=== PATIENT | male | born 2000 | race African-American/Black ===

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

== ENCOUNTER 2018-01-11 10:39 | Emergency (ER) | payer MEDICAID, OTHER ==
[2018-01-11 10:45] VITALS: BP 120/64
[2018-01-11] MEDS ORDERED: DIPHENHYDRAMINE HCL 50 MG/ML VIAL IV ONE (11:09)
[2018-01-11] MEDS ORDERED: METOCLOPRAMIDE HCL INJ/PF 10 MG/2 ML SDV IV ONE (11:09)
[2018-01-11] MEDS ORDERED: KETOROLAC TROMETHAMINE INJ/PF 30 MG/1 ML SDV IV ONE (11:09)
[2018-01-11] MEDS ORDERED: NORMAL SALINE 1000 ML 1,000 ML IV ONE (11:09)
--- NOTE | 2018-01-11 11:11 | ER Document Report ---
ED Medical Screen (RME) - General Chief Complaint: Headache Stated Complaint: HEADACHE Time Seen by Provider: 01/11/18 11:06 Notes: Patient is a 17-year-old male, no past medical history, presents with 5 days of a waxing and waning frontal headache. Tried Advil and Tylenol without much relief of his symptoms. Headache started gradually 5 days ago improve by the end of the day. PE: NAD. 5/5 strength, Normal gait. I have greeted and performed a rapid initial assessment of this patient. A comprehensive ED assessment and evaluation of the patient, analysis of test results and completion of the medical decision making process will be conducted by additional ED providers. TRAVEL OUTSIDE OF THE [place] IN LAST 30 DAYS: No - Related Data Allergies/Adverse Reactions: No Known Allergies Allergy (Verified 07/23/17 14:42) Past Medical History - Social History Chew tobacco use (# tins/day): No Frequency of alcohol use: None Drug Abuse: None Renal/ Medical History: Denies: Hx Peritoneal Dialysis - Immunizations Immunizations up to date: Yes Hx Diphtheria, Pertussis, Tetanus Vaccination: Yes Physical Exam - Vital signs Vitals: Temp Pulse Resp BP Pulse Ox 99.2 F 74 16 120/64 98 01/11/18 10:43 01/11/18 10:43 01/11/18 10:43 01/11/18 10:43 01/11/18 10:43 Course - Vital Signs Vital signs: Temp Pulse Resp BP Pulse Ox 99.2 F 74 16 120/64 98 01/11/18 10:43 01/11/18 10:43 01/11/18 10:43 01/11/18 10:43 01/11/18 10:43
--- NOTE | 2018-01-11 11:32 | ER Document Report ---
HPI - HPI Pain Level: 2 - DERM Skin Color: Normal Past Medical History - Social History Smoking Status: Current Some Day Smoker Chew tobacco use (# tins/day): No Frequency of alcohol use: None Drug Abuse: None Family History: Reviewed & Not Pertinent Patient has suicidal ideation: No Patient has homicidal ideation: No Renal/ Medical History: Denies: Hx Peritoneal Dialysis - Immunizations Immunizations up to date: Yes Hx Diphtheria, Pertussis, Tetanus Vaccination: Yes Vertical Provider Document - INFECTION CONTROL TRAVEL OUTSIDE OF THE [place] IN LAST 30 DAYS: No Course - Vital Signs Vital signs: Temp Pulse Resp BP Pulse Ox 99.2 F 74 16 120/64 98 01/11/18 10:43 01/11/18 10:43 01/11/18 10:43 01/11/18 10:43 01/11/18 10:43
--- NOTE | 2018-01-11 11:33 | ER Document Report ---
ED Headache - General Chief Complaint: Headache Stated Complaint: HEADACHE Time Seen by Provider: 01/11/18 11:06 Mode of Arrival: Ambulatory Information source: Patient Notes: 17-year-old male with gradual onset of a headache since Monday. It started at 7 PM and slowly got worse to where he could not sleep that night. Since then he has a daily headache that worsens through the day until about 4 PM and hurts less in the evening. The headache location is bilateral temporal throbbing headache. He had bad headaches as a child but never saw a neurologist. 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 No recent illness. No sore throat runny nose or cough. No sinus pain. No nausea or vomiting. No fever or chills. No neck pain. TRAVEL OUTSIDE OF THE [place] 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 Lives with: Family Family History: Reviewed & Not Pertinent Patient has suicidal ideation: No Patient has homicidal ideation: No - Medical History Medical History: Negative Renal/ Medical History: Denies: Hx Peritoneal Dialysis Surgical Hx: Negative - Immunizations Immunizations up to date: Yes Hx Diphtheria, Pertussis, Tetanus Vaccination: Yes Review of Systems - Review of Systems Constitutional: No symptoms reported EENT: No symptoms reported Cardiovascular: No symptoms reported Respiratory: No symptoms reported Gastrointestinal: No symptoms reported Genitourinary: No symptoms reported Male Genitourinary: No symptoms reported Musculoskeletal: No symptoms reported Skin: No symptoms reported Hematologic/Lymphatic: No symptoms reported Neurological/Psychological: See HPI Physical Exam - Vital signs Vitals: Temp Pulse Resp BP Pulse Ox 99.2 F 74 16 120/64 98 01/11/18 10:43 01/11/18 10:43 01/11/18 10:43 01/11/18 10:43 01/11/18 10:43 Interpretation: Normal - General General appearance: Appears well, Alert - HEENT Head: Normocephalic, Atraumatic Eyes: Normal Pupils: PERRL Neck: Supple. No: Lymphadenopathy, Thyromegally - Respiratory Respiratory status: No respiratory distress Chest status: Nontender Breath sounds: Normal Chest palpation: Normal - Cardiovascular Rhythm: Regular Heart sounds: Normal auscultation Murmur: No - Abdominal Inspection: Normal Distension: No distension Bowel sounds: Normal Tenderness: Nontender Organomegaly: No organomegaly - Back Back: Normal, Nontender - Extremities General upper extremity: Normal inspection, Nontender, Normal color, Normal ROM , Normal temperature General lower extremity: Normal inspection, Nontender, Normal color, Normal ROM , Normal temperature, Normal weight bearing. No: Cyn's sign - Neurological Neuro grossly intact: Yes Cognition: Normal Orientation: AAOx4 Lucian Coma Scale Eye Opening: Spontaneous Lucian Coma Scale Verbal: Oriented Lucian Coma Scale Motor: Obeys Commands [place] Coma Scale Total: 15 Speech: Normal Motor strength normal: LUE, RUE, LLE, RLE Sensory: Normal - Psychological Associated symptoms: Normal affect, Normal mood - Skin Skin Temperature: Warm Skin Moisture: Dry Skin Color: Normal Course - Re-evaluation Re-evalutation: 01/11/18 12:07 Headache is now 0.5/5. I will give him a prescription for 800 mg Motrin and he can take Tylenol as well. I will refer him to a neurologist and have him return to the emergency room if symptoms worsen. - Vital Signs Vital signs: Temp Pulse Resp BP Pulse Ox 99.2 F 74 16 120/64 98 01/11/18 10:43 01/11/18 10:43 01/11/18 10:43 01/11/18 10:43 01/11/18 10:43 Discharge - Discharge Clinical Impression: Bilateral throbbing temporal headache Condition: Good Disposition: HOME, SELF-CARE Instructions: Use of Diphenhydramine, Headache ([facility]), Reglan ([facility]), Toradol Injection ([facility]) Additional Instructions: Motrin 800 mg 3 times a day as needed for headache Tylenol up to 4000 mg per day for pain Call and schedule appointment with neurologist Return to the emergency room any worsening symptoms Prescriptions: Ibuprofen [Motrin 800 mg Tablet] 800 mg PO Q8HP PRN #30 tablet PRN Reason: Forms: Return to Work Referrals: ALBERT LARES MD [NO LOCAL MD] - Follow up as needed
== END 2018-01-11 12:21 | disposition home or self-care (01) ==
LOC: ER 10:39
DX: R51 Headache (principal); F17.200 Nicotine dependence, unspecified, uncomplicated
CPT/HCPCS: 99284; 96361; 96374; 96375; J1200; J1885; J2765; J7030

== ENCOUNTER 2018-06-08 20:11 | Emergency (ER) | payer SELFPAY ==
--- NOTE | 2018-06-08 22:21 | ER Document Report ---
ED Respiratory Problem - General Chief Complaint: Cold Symptoms Stated Complaint: COLD SYMPTOMS Time Seen by Provider: 06/08/18 22:04 Mode of Arrival: Ambulatory Information source: Patient Notes: Patient is a 18-year-old male comes emergency room with a 3-day onset of cough congestion sneezing and shortness of breath with a slight fever. Patient states he thinks he probably got it from his mother who was diagnosed with it about a week before. He states he took an antibiotic and steroids to get her cleared up. 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 He also is in [employer] and he is due for his yearly PT evaluation. He has been having Hacche cough productive yellowish-green. With the runny nose and is difficult for him to breathe. He is tried Mucinex [id number] as well as ibuprofen and Tylenol for the fever. He is recently taken something for ibuprofen for the fever. He also states he has a severe sore throat as well. TRAVEL OUTSIDE OF THE [place] IN LAST 30 DAYS: No - HPI Patient complains to provider of: Cough, Hurts to breath, Short of breath Onset: Other - 3 days Duration: Worse/persistent Initiating Event: Exertion, Exposure to chemicals, Exposure to dust, Exposure to fumes, URI Quality of pain: Achy Severity: Moderate Pain Level: 3 Short of Breath: Moderate Chest pain/discomfort: Constant, Worse with deep breaths Cough: Productive Sputum amount: Moderate Sputum color: Green, Yellow Sputum consistency: Thick Similar symptoms previously: No Recently seen / treated by doctor: No - Related Data Allergies/Adverse Reactions: No Known Allergies Allergy (Verified 07/23/17 14:42) Past Medical History - General Information source: Patient - Social History Smoking Status: Current Every Day Smoker Cigarette use (# per day): No Chew tobacco use (# tins/day): No Smoking Education Provided: No Frequency of alcohol use: None Drug Abuse: None Family History: Reviewed & Not Pertinent Patient has suicidal ideation: No Patient has homicidal ideation: No Renal/ Medical History: Denies: Hx Peritoneal Dialysis - Immunizations Immunizations up to date: Yes Hx Diphtheria, Pertussis, Tetanus Vaccination: Yes Review of Systems - Review of Systems Constitutional: Chills, Fever EENT: Nose congestion, Nose discharge, Sinus pressure, Sinus discharge, Throat pain Cardiovascular: No symptoms reported Respiratory: Cough, Short of breath, Sputum, Wheezing Gastrointestinal: No symptoms reported Genitourinary: No symptoms reported Male Genitourinary: No symptoms reported Musculoskeletal: No symptoms reported Skin: No symptoms reported Hematologic/Lymphatic: No symptoms reported Neurological/Psychological: No symptoms reported -: Yes All other systems reviewed and negative Physical Exam - Vital signs Vitals: Temp Pulse Resp BP Pulse Ox 99.2 F 81 18 129/69 H 97 06/08/18 20:27 06/08/18 20:27 06/08/18 20:27 06/08/18 20:27 06/08/18 20:27 Interpretation: Normal - Notes Notes: Well-nourished well-developed male no apparent distress but ill-appearing. - General General appearance: Alert In distress: None - HEENT Head: Normocephalic, Atraumatic Eyes: Normal Conjunctiva: Normal Pupils: PERRL External canal: Normal Tympanic membrane: Bulging. No: Normal, Hemotympanum, Injected, Loss of landmarks, Perforation, Purulent effusion, Retracted, Serous effusion Sinus: Frontal, Maxillary, Swelling, Tenderness Nasal: Clear rhinorrhea. No: Bloody discharge, Dina deformity, Ecchymosis, Epistaxis, Purulent discharge, Septal hematoma Mucous membranes: Normal, Moist Pharynx: Erythema, Post nasal drainage, Tonsillar hypertrophy, Uvular edema. No : Normal, Exudate, Peritonsillar abscess, Retropharyngeal abscess, Potential airway comprom. Neck: Lymphadenopathy, Shotty nodes, Supple. No: Anterior cervical chain, Posterior cervical chain, Brudzinski, Carotid bruit, Kernig's, Meningismus, Neck mass, Subcutaneous emphysema, Thyroid nodule, Thyromegally - Respiratory Respiratory status: No respiratory distress, Retractions Chest status: Nontender Breath sounds: Decreased air movement, Productive cough, Rhonchi, Wheezing, Other - Auscultation patient's lung naik show he has bilateral breath sounds breath sounds decreased throughout both lungs he has faint inspiratory expiratory wheeze noted with some upper airway rhonchi noted clearing on cough. - Cardiovascular Rhythm: Regular Heart sounds: Normal auscultation Murmur: No - Neurological Neuro grossly intact: Yes Cognition: Normal Orientation: AAOx4 Lucian Coma Scale Eye Opening: Spontaneous [place] Coma Scale Verbal: Oriented [place] Coma Scale Motor: Obeys Commands [place] Coma Scale Total: 15 Speech: Normal - Skin Skin Temperature: Warm Skin Moisture: Dry Skin Color: Normal, Holley Course - Re-evaluation Re-evalutation: 06/09/18 01:42 Had a long discussion with patient. As stated he is [employer]. 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 I suggested to him that the weekend off would be the best test benefit given that he has been coughing up this garbage no history of asthma in the past but he is wheezing and evidence of a low-grade fever. I have very so we will treat with antibiotics for a presentation of this but he does have a pharyngitis as well we will put him on the amoxicillin 875 twice daily along with the steroid pack and the Sudafed to dry mouth. We will give him off the weekend so he can catch his breath and hopefully recover. - Vital Signs Vital signs: Temp Pulse Resp BP Pulse Ox 98.7 F 70 20 125/70 99 06/08/18 22:36 06/08/18 22:36 06/08/18 22:36 06/08/18 22:36 06/08/18 22:36 Discharge - Discharge Clinical Impression: Sinusitis Qualifiers: Sinusitis location: maxillary Chronicity: acute Recurrence: non-recurrent Qualified Code(s): J01.00 - Acute maxillary sinusitis, unspecified Upper respiratory infection Qualifiers: URI type: unspecified URI Qualified Code(s): J06.9 - Acute upper respiratory infection, unspecified Pharyngitis Qualifiers: Pharyngitis/tonsillitis etiology: unspecified etiology Qualified Code(s): J02.9 - Acute pharyngitis, unspecified Disposition: HOME, SELF-CARE Instructions: Fever ([facility]), Tonsillitis ([facility]), Upper Respiratory Infection, Infant or Child ([facility]) Additional Instructions: Home and rest. Medications prescribed. Use nasal saline 3-4 times a day to keep the nose moist and secretions thin. Take all of the antibiotics. Should you have any concerns or problems return to ER for recheck. He may also try salt water gargles. Prescriptions: Amoxicillin 875 mg PO BID #20 tablet Prednisone [Sterapred Ds] 10 mg PO ASDIR PRN #1 tab.ds.pk PRN Reason: Pseudoephedrine HCl [Sudafed 12 Hour] 120 mg PO BID #20 tablet.er Forms: Return to Work
[2018-06-08 22:39] VITALS: BP 125/70
== END 2018-06-08 22:39 | disposition home or self-care (01) ==
LOC: ER 20:11
DX: J01.00 Acute maxillary sinusitis, unspecified (principal); J02.9 Acute pharyngitis, unspecified; J06.9 Acute upper respiratory infection, unspecified; R05 Cough; R06.7 Sneezing; R06.02 Shortness of breath; R50.9 Fever, unspecified; R07.1 Chest pain on breathing; R06.2 Wheezing; J34.89 Other specified disorders of nose and nasal sinuses; R09.82 Postnasal drip; J35.1 Hypertrophy of tonsils; F17.200 Nicotine dependence, unspecified, uncomplicated
CPT/HCPCS: 99283